=== PATIENT | male | born 1960 | race African-American/Black ===

== ENCOUNTER 2022-09-14 10:32 | Emergency (ER) | payer MEDICARE ==
[~2022-09-14] VITALS: Ht 175.3 cm; Wt 84.1 kg
[2022-09-14 10:56] VITALS: TEMP 97.2
[2022-09-14 12:33] LABS: BASO % 0.6 % (0.0-2.0); EOS # 0.1 K/mm3 (0.0-0.7); EOS % 1.8 % (0.0-4.0); GRAN # 2.6 K/mm3 (1.4-6.5); GRAN % 51.3 % (42.2-75.2); HEMOGLOBIN 13.5 g/dl (13.5-18.0); LYMPH # 1.9 K/mm3 (1.2-3.4); LYMPH % 38.1 % (20.0-51.0); MEAN CELL VOLUME 88 fl (80.0-100.0); MEAN CORPUSCULAR HEMOGLOBIN 30 pg (27-31); MEAN CORPUSCULAR HGB CONC 34 g/dl (33.0-37.0); MEAN PLATELET VOLUME 11.7 fl (7.4-10.4); MONO # 0.4 K/mm3 (0.1-0.6); PLATELET COUNT 163 K/mm3 (130-400); RED BLOOD COUNT 4.57 M/mm3 (4.20-5.60); REDCELL DISTRIBUTION WIDTH-CV 13.3 % (11.5-14.5)
[2022-09-14 12:49] LABS: ALBUMIN 3.3 gm/dL (3.4-4.8); BILIRUBIN,TOTAL 0.4 mg/dL (0.2-1.2); CALCIUM 8.6 mg/dL (8.4-10.2); CREATININE, serum 1.36 mg/dL (0.72-1.25); POTASSIUM 4.3 mmol/L (3.5-4.5)
[2022-09-14 13:08] LABS: TROPONIN-I 0.026 ng/mL (0.00-0.033); TSH w REFLEX 0.869 uIU/mL (0.350-4.940)
[2022-09-14] MEDS ORDERED: PRINIVIL10 MG PO (13:22)
[2022-09-14 13:28] VITALS: BP 178/99; PULSE 68
== END 2022-09-14 13:28 | disposition home or self-care (01) ==
LOC: COL.ER 10:32 → EDBD 10:36 → COL.ER 10:36
PROVIDERS: Emergency Medicine
DX: I10 Essential (primary) hypertension (principal); T46.4X6A Underdosing of angiotensin-converting-enzyme inhibitors, initial encounter; R79.89 Other specified abnormal findings of blood chemistry; Z91.14 Patient's other noncompliance with medication regimen; Z87.891 Personal history of nicotine dependence